=== PATIENT | female | born 1980 | race Caucasian/White ===

== ENCOUNTER 2016-11-23 22:38 | Emergency (ER) | payer OTHER ==
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
[2016-11-23 23:40] VITALS: BP 154/111; PULSE 111; TEMP 97.6; BMI 27.4
[2016-11-24] MEDS ORDERED: IBUPROFEN 400 MG TABLET (FP) PO ONE ×2 (00:11→01:13)
[2016-11-24 01:22] LABS: URINE APPEARANCE SLCLOUDY; URINE BILIRUBIN NEGATIVE (NEGATIVE); URINE COLOR LTYELLOW; URINE GLUCOSE (UA) 1+ (NEGATIVE); URINE KETONE NEGATIVE (NEGATIVE); URINE NITRITE POSITIVE (NEGATIVE); URINE PROTEIN NEGATIVE (NEGATIVE); URINE UROBILINOGEN NEGATIVE E.U./dl (0.2-1.0)
[2016-11-24 01:26] LABS: URINE BLOOD 1+ (NEGATIVE); URINE LEUK ESTERASE 2+ (NEGATIVE)
[2016-11-24] MEDS ORDERED: LEVOFLOXACIN 500 MG TABLET (FP) PO ONE (01:34)
[2016-11-24] MEDS ORDERED: LEVOFLOXACIN 500 MG TABLET (FP) ONE (01:36)
[2016-11-24 01:40] LABS: URINE BACTERIA MANY /hpf (NONE SEEN); URINE HYALINE CAST 2 /lpf; URINE MUCUS RARE; URINE RBC 4 /hpf (0-3); URINE WBC 23 /hpf (3-5)
== END 2016-11-24 03:21 | disposition home or self-care (01) ==
LOC: JER 22:38
DX: S93.402A Sprain of unspecified ligament of left ankle, initial encounter (principal); N39.0 Urinary tract infection, site not specified; I10 Essential (primary) hypertension; G89.29 Other chronic pain; F17.210 Nicotine dependence, cigarettes, uncomplicated; X58.XXXA Exposure to other specified factors, initial encounter; Y93.9 Activity, unspecified; Y92.9 Unspecified place or not applicable
CPT/HCPCS: 73610-TC-LT; 73630-TC-LT; 81003; 81015; 84703; 99283-25

== ENCOUNTER 2016-11-25 23:52 | Emergency (ER) | payer OTHER ==
[2016-11-26 00:14] VITALS: BP 131/85; PULSE 84; TEMP 98; BMI 27.4
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
== END 2016-11-26 08:37 | disposition home or self-care (01) ==
LOC: JER 23:52
DX: G89.4 Chronic pain syndrome (principal); I10 Essential (primary) hypertension; Z21 Asymptomatic human immunodeficiency virus [HIV] infection status
CPT/HCPCS: 73630-TC-LT; 73630-TC-RT; 99281-25